=== PATIENT | female | born 1950 | race American Indian/Alaskan Native ===

== ENCOUNTER 2020-05-15 12:45 | Outpatient (CLI) | payer MEDICARE ==
--- NOTE | 2020-05-15 15:28 | Magnetic Resonance Report ---
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 TECHNIQUE: Multiplanar, multisequence series were obtained through the abdomen. COMPARISON: MR abdomen dated 02/16/2019 and 09/17/2019 FINDINGS: The previously described 1.9 cm exophytic lesion from the superior left kidney is unchanged in size a nd signal characteristics since 02/16/2019 exam. This lesion is incompletely characterized without IV gadolinium but is not consistent with a simple cyst. Focal cortical scarring and small cyst at the i nferior pole the left kidney is also unchanged. The right kidney and both collecting systems remain u nremarkable. The renal veins appear patent and unremarkable. There are a few left periaortic lymph no frederick measuring up to 7 mm in short axis which are unchanged. No bulky adenopathy is appreciated. Approximately 4 gallstones are identified in the gallbladder. No evidence for dilatation or inflammat ion. The liver, pancreas, spleen, adrenal glands, vascular structures and visualized bowel loops are unremarkable. Normal appendix. Bone marrow signal in the visualized osseous structures is unremarkable. IMPRESSION: No change in the 1.9 cm exophytic left renal lesion from the superior pole since 02/16/2019. Low-gra de neoplasm remains a concern. Consider correlation with ultrasound. Signer Name: Cy Vanessa Jr, MD Signed: 05/15/2020 3:24 PM Workstation Name: [id number]
--- NOTE | 2020-05-19 12:15 | Ultrasound Report ---
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 COMPARISON: Multiple previous MR abdomen with the most recent being 05/15/2020 FINDINGS: RIGHT KIDNEY: Length = 11.5 cm. [normal > 9 cm] - Parenchymal Thickness = 1.5 cm. [normal > 1.5 cm] - Echogenicity: Normal. - Hydronephrosis: None. - Cyst or mass: No significant abnormality. - Stones: None seen. LEFT KIDNEY: Length = 10.7 cm. [normal > 9 cm] - Parenchymal Thickness = 1.8 cm. [normal > 1.5 cm] - Echogenicity: Normal. - Hydronephrosis: None. - Cyst or mass: A soft tissue echogenicity exophytic lesion from the superior left kidney measuring 1 .8 x 1.9 cm is again seen. There is no evidence for internal cystic change or calcifications. Trace p erfusion on color Doppler is noted. - Stones: None seen. URINARY BLADDER: No significant abnormality. FREE FLUID: None. ADDITIONAL FINDINGS: None. IMPRESSION: 1.8 x 1.9 cm exophytic mass from the superior left kidney. This appears unchanged since previous MR abdomen. This does not represent a cyst. Low-grade neoplasm cannot be excluded. Signer Name: Cy Vanessa Jr, MD Signed: 05/19/2020 12:11 PM Workstation Name: [id number]
== END 2020-05-15 12:46 | disposition home or self-care (01) ==
LOC: MRI 12:45
PROVIDERS: ATTEND Radiology Diagnostic Radiology
DX: C64.9 Malignant neoplasm of unspecified kidney, except renal pelvis (principal); N28.89 Other specified disorders of kidney and ureter; K80.20 Calculus of gallbladder without cholecystitis without obstruction
CPT/HCPCS: 74181; 76770